=== PATIENT | male | born 1960 | race Native Hawaiian/Other Pacific Islander ===

== ENCOUNTER 2017-06-23 19:04 | Emergency (ER) | payer OTHER ==
[~2017-06-23] VITALS: Ht 185.4 cm; Wt 113.9 kg
[2017-06-23 19:47] LABS: PLATELET COUNT 233 K/uL (142-355)
[2017-06-23 19:51] LABS: POTASSIUM 3.6 mmol/L (3.6-5.2)
== END 2017-06-23 21:09 | disposition home or self-care (01) ==
LOC: ED 19:04
DX: K52.9 Noninfective gastroenteritis and colitis, unspecified (principal)
CPT/HCPCS: 36415; 74022; 80053; 81000; 85027; 96360; 96361; 96375; 99284; J1885; J2405; J7120